=== PATIENT | female | born 2000 | race Caucasian/White ===

== ENCOUNTER 2021-05-28 08:42 | Emergency (ER) | payer OTHER, SELFPAY ==
[2021-05-28 08:51] VITALS: BP 128/84; PULSE 99; RESP 16; TEMP 37.1; O2SAT 100
--- NOTE | 2021-05-28 08:59 | ED.EYEPROB ---
HPI - Eye Problem General Chief complaint: Eye Problems Stated complaint: Possible right Eye infection Time Seen by Provider: 05/28/21 08:59 Source: patient and RN notes reviewed History of Present Illness HPI Narrative: Patient is a 21-year-old female who presents the urgent care with complaints of possible right eye infection. Patient states that she woke up with some right eye swelling and redness this morning. 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 Patient does wear glasses and states that she has not worn her contacts in a couple months. Denies of any known trauma to the eye. Denies of any matting, vision changes, fever. Patient states that she is used saline eyewash to the eye this morning. No other acute complaints. No acute distress noted. Patient aware of the plan of care. Some parts of this dictation were generated by voice recognition software and may contain typographical and/or grammatical inaccuracies. Related Data Allergies Allergy/AdvReac Type Severity Reaction Status Date / Time No Known Allergies Allergy Verified 05/28/21 09:03 Review of Systems Review of Systems: Narrative: CONSTITUTIONAL: Denies fever, chills, or sweats. EYES: Denies visual changes. Reports of redness to the right eye and mild swelling to the right lower eyelid ENT: Denies rhinorrhea, congestion, sore throat, or otalgia. CARDIOVASCULAR: Denies chest pain, palpitations, or edema. RESPIRATORY: Denies cough or dyspnea. GASTROINTESTINAL: Denies abdominal pain, nausea, vomiting, or diarrhea. GENITOURINARY: Denies dysuria or hematuria. SKIN: Denies rash or itching. MUSCULOSKELETAL: Denies back pain, joint pain, or myalgia. NEUROLOGIC: Denies headache, numbness, or weakness. All other systems reviewed are negative, except as documented in HPI. PMFSH Comments At the time of my signature, I reviewed and agree with the nursing past medical, surgical, social, and family history. There is no relevant family history pertinent to the patient complaint. Exam Narrative: Exam Narrative: GENERAL: This is a well-nourished, well-developed patient, in no apparent distress. HEAD: normocephalic, atraumatic. EYES: PERRL. Sclera clear/white. Vision is grossly intact. Mild injected right medial conjunctivea with very mild edema to the right lower eyelid. No matting noted. EARS: External ears normal NOSE: External nose normal with no obvious nasal discharge, nares without redness, no rhinorrhea. THROAT: Mucous membranes moist NECK: Neck supple CARDIOVASCULAR: Regular rate and rhythm without murmurs, gallops, or rubs. RESPIRATORY: Clear to auscultation. Breath sounds equal bilaterally. No wheezes, rales, or rhonchi. SKIN: warm, intact with no suspicious lesions or rash, good texture and turgor. NEURO: awake, alert, and oriented to person, place and time. There were no obvious focal neurologic abnormalities. EXTREMITIES: No clubbing, cyanosis, or edema. Course Vital Signs Vital signs: Vital Signs Temperature 98.7 F 05/28/21 08:51 Pulse Rate 99 05/28/21 08:51 Respiratory Rate 16 05/28/21 08:51 Blood Pressure 128/84 05/28/21 08:51 Pulse Oximetry 100 05/28/21 08:51 Temperature 98.7 F 05/28/21 08:51 Pulse Rate 99 05/28/21 08:51 Respiratory Rate 16 05/28/21 08:51 Blood Pressure 128/84 05/28/21 08:51 Pulse Oximetry 100 05/28/21 08:51 Reviewed MDM - Eye Problem MDM Narrative Medical decision making narrative: Advised the patient to continue the eye wash 2-3 times a day as needed. Use the eyedrops to the right eye as directed. Be sure to wipe the applicator tip after each application. Use warm compress to the right eye. If you develop any increase in symptoms associated with swelling or vision change?go directly to your senior lead project manager or to the closest ER. Follow-up with your senior lead project manager within 2 to 5 days or for worsening symptoms or failure to improve. Differential
== END 2021-05-28 09:10 | disposition home or self-care (01) ==
PROVIDERS: Emergency Provider Nurse Practitioner Family
DX: H57.89 Other specified disorders of eye and adnexa (principal)
CPT/HCPCS: 99213; G0463